=== PATIENT | male | born 1990 | race Two or more races ===

== ENCOUNTER 2019-12-23 00:56 | Emergency (ER) | payer OTHER ==
[~2019-12-23] VITALS: Ht 172.7 cm; Wt 68.0 kg
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
[2019-12-23 01:06] VITALS: BP 120/75
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
[2019-12-23] MEDS ORDERED: Bacitracin Oint UD TOPIC ONE (01:27)
[2019-12-23] MEDS ORDERED: Neosporin Oint Ud Pkt TOPIC ONE (01:30)
--- NOTE | 2019-12-23 01:36 | NUR ---
ER DISCHARGE NOTE: Patient is cleared to be discharged per ERMD, pt is aox4, on room air, with stable vital signs. wounds have been cleaned, sutured and dressed. airconditioning drafting officer that pt is in custody of received d/c instructions, understanding was verbalized. pt id band removed without complications. pt is able to ambulate with steady gait. pt took all belongings and left in custody of [employer]
[2019-12-23 01:38] VITALS: BP 120/75
== END 2019-12-23 01:39 ==
LOC: EDBD 00:56 → EMR 01:14
DX: S51.812A Laceration without foreign body of left forearm, initial encounter (principal); S51.811A Laceration without foreign body of right forearm, initial encounter; W26.9XXA Contact with unspecified sharp object(s), initial encounter; Y92.9 Unspecified place or not applicable
CPT/HCPCS: 99283